=== PATIENT | male | born 1960 | race Caucasian/White ===

== ENCOUNTER 2025-08-23 13:57 | Emergency (ER) | payer OTHER, SELFPAY ==
[2025-08-23] VITALS (28 sets, daily range): BP systolic 178–209; BP diastolic 89–130; PULSE 68–95; O2SAT 95–99; BMI 30.5
--- NOTE | 2025-08-23 14:07 | ECG_ITS ---
The [facility] Test Date: 2025-08-23 Pat Name: Pastor Godinez Department: Room: - Gender: Male Floater Operator: : 1960 Requested By: Jaizel Rebollar Order Number: [id number] Reading MD: JOHN BRIONES M.D. Measurements Intervals [place] Rate: 79 P: 47 MT: 244 QRS: 65 QRSD: 108 T: 65 QT: 412 QTc: 446 Interpretive Statements 1100 Sinus rhythm 2231 First degree AV block 2440 Incomplete right bundle branch block 4068 Nonspecific Twave abnormality 9150 abnormal ECG No previous ECG available for comparison Electronically Signed On 08-23-2025 18:59:19 EDT by JOHN BRIONES M.D.
--- NOTE | 2025-08-23 14:07 | CT_ITS ---
The [address] [address] Patient Name: MARCI MUNOZ MRN: [id number] date: 1960 Sex: M Assigned Patient Location: ER Current Patient Location: ED.MAIN Accession/Order Number: [id number] Exam Date: 08/23/2025 14:15 Report Date: 08/23/2025 14:52 At the request of: CARLOS GIL MD Procedure: CT stroke head/brain wo con CT BRAIN WITHOUT CONTRAST: CLINICAL HISTORY: dizziness of with headache COMPARISON: None TECHNIQUE: Contiguous axial unenhanced images were obtained through the brain. This CT exam was performed using one or more following dose reduction techniques: Automated exposure control, adjustment of the mA and/or kV according to patient size, or use of iterative reconstruction technique. FINDINGS: There is no evidence of midline shift, intra or extra-axial fluid collection, hemorrhage or CT evidence of stroke. Cortical atrophy with chronic microvascular ischemic changes. Posterior fossa appears unremarkable. Visualized intraorbital contents demonstrate no acute findings. Visualized paranasal sinuses are clear. The surrounding soft tissues are normal. CT/CT stroke head/brain wo con IMPRESSION: NO ACUTE INTRACRANIAL ABNORMALITY. Impression dictated by: Azeem Moya Jr., D.OHenry 08/23/2025 2:52 PM Dictation Location: [place] [address] Electronically authenticated by: [id number] Y Date: 08/23/2025 14:52
--- NOTE | 2025-08-23 14:19 | ED.DIZZY1 ---
HPI - Dizziness General Chief Complaint: Dizziness Stated Complaint: CVA SYMPTOMS Time Seen by Provider: 08/23/25 14:07 Source: patient Mode of arrival: Wheelchair Limitations: no limitations History of Present Illness HPI Narrative: The patient is a 65-year-old male presenting to the ER after he was driving and felt all of a sudden dizzy and having some nausea, the patient did not have any weakness but he just felt Dizzy with no room spinning sensation,, he was worried that he is going to have a stroke and that why he presented to the ER Upon arrival the patient initially mentioned that he is worried that he is having a stroke but he did not have any upper or lower extremity weakness no blurry vision no double vision no difficulty speaking at any time The patient does have a history of hypertension but for the last 2 years he has not been taking any blood pressure medication because he thinks he was allergic to a lot of medication that he was given Related Data Previous Rx's ?Medication ?Instructions ?Recorded hydralazine 25 mg tablet 25 mg PO TID #20 tabs 08/23/25 Allergies Allergy/AdvReac Type Severity Reaction Status Date / Time No Known Drug Allergies Allergy Verified 08/23/25 14:02 Review of Systems ROS Status of ROS 10 or more systems reviewed and unremarkable except as noted in history and below PFSH PFSH Social History Little interest or pleasure in doing things: not at all Feeling down, depressed, or hopeless: not at all Exam Narrative Exam Narrative: Nurses notes and vital signs reviewed and patient is not hypoxic. General: Well-appearing and in no apparent distress. Skin: Warm, dry, no pallor noted. No rash. Head: Normocephalic, atraumatic. Neck: Supple, non-tender. Eye: Pupils are equal, round and EOMI. No scleral icterus. Ears, Nose, Mouth, and Throat: TM are clear, no nasal mucosal hypertrophy. Oral mucosa is moist, no posterior oropharynx erythema, uvula is mid-line Cardiovascular: Regular Rate and Rhythm without murmur, gallop or rub. Respiratory: No accessory muscle use or respiratory distress. Lungs are clear to auscultation, no wheezing, rales or rhonchi Chest Wall: no tenderness Back: No midline thoracic or lumbar vertebral tenderness. No CVA tenderness Musculoskeletal: normal ROM, no calf or popliteal tenderness, no lower extremity edema/swelling GI: Abdomen is soft, non-distended. Normal bowel sounds. No masses appreciated. No tenderness to palpation. No rebound, guarding, or rigidity noted. Neurological: A&O x4. No cranial nerve dysfunction observed. No truncal ataxia. Moves all extremities. Sensation intact. Psychiatric: Cooperative and interactive. Normal mood and affect. Constitutional Vital Signs, click to edit/add: Last Vital Signs Pulse 95 H 08/23/25 16:45 Resp 18 08/23/25 16:45 BP 178/98 H 08/23/25 16:45 Pulse Ox 96 08/23/25 16:45 O2 Del Method Room Air 08/23/25 13:58 Course Vital Signs Vital signs: Vital Signs Pulse Rate 82 08/23/25 13:58 Respiratory Rate 22 H 08/23/25 13:58 Blood Pressure 209/114 H 08/23/25 13:58 Pulse Oximetry 99 08/23/25 13:58 Oxygen Delivery Method Room Air 08/23/25 13:58 Pulse Rate 95 H 08/23/25 16:45 Respiratory Rate 18 08/23/25 16:45 Blood Pressure 178/98 H 08/23/25 16:45 Pulse Oximetry 96 08/23/25 16:45 Oxygen Delivery Method Room Air 08/23/25 13:58 MDM - Dizziness MDM Narrative Medical decision making narrative: The patient EKG showing sinus rhythm with a heart rate of [address] elevation or depression Patient neurological examination was completely benign upon arrival CBC and chemistry showed no acute pathology and the patient troponin was not elevated and that compared to 2 testing The patient was feeling much better after his blood pressure was getting control I did initially give him hydralazine 5 mg and then he was provided with hydralazine 10 after which his blood pressure is 178/98 which is adequate at the moment I did speak with Dr. Rebollar who is the primary care with the patient and the plan was to discharge the patient on hydralazine and to follow-up with him within the next few days and he was discharged with hydralazine 25 mg 3 times daily Patient instructed about monitoring his symptoms and measuring his blood pressure daily and decreasing salt intake The patient was able to ambulate with no difficulty he did not have any concern when he was in the ER The patient to follow-up with the primary care within 2 to 3 days and to come back to the ER in case of any worsening of the current symptoms or any new symptoms or concerns Lab Data Labs: Lab Results 08/23/25 08/23/25 Range/Units 14:05 16:31 WBC 6.2 (4.0-11.0) 10^3/uL RBC 4.43 L (4.70-6.10) 10^6/uL Hgb 14.5 (14.0-18.0) g/dL Hct 41.2 L (42.0-54.0) % MCV 93.0 (80.0-94.0) fL MCH 32.7 (25.9-34.0) pg MCHC 35.2 (29.9-35.2) g/dL RDW 12.0 (11.0-15.0) % Plt Count 179 (150-450) 10^3/uL MPV 9.3 L (9.5-13.5) fL Neut % (Auto) 65.9 (43.0-75.0) % Lymph % (Auto) 15.4 L (20.5-60.0) % [place] % (Auto) 14.5 H (1.7-12.0) % Eos % (Auto) 2.9 (0.9-7.0) % Baso % (Auto) 1.1 (0.2-2.0) % Neut # (Auto) 4.1 (1.4-6.5) 10^3/uL Lymph # (Auto) 1.0 L (1.2-3.8) 10^3/uL [place] # (Auto) 0.9 H (0.3-0.8) 10^3/uL Eos # (Auto) 0.2 (0.0-0.7) 10^3/uL Baso # (Auto) 0.1 (0.0-0.1) 10^3/uL Abs Immat Gran (auto) 0.01 (0.00-0.03) 10^3/uL Imm/Tot Granulo (auto) 0.2 (0.0-0.5) % PT 11.2 (9.0-11.6) sec INR 1.06 Sodium 137 (136-145) mmol/L Potassium 3.1 L (3.5-5.1) mmol/L Chloride 98 (98-107) mmol/L Carbon Dioxide 23.3 (21.0-32.0) mmol/L Anion Gap 18.8 BUN 7.0 (7.0-18.0) mg/dL Creatinine 0.78 (0.70-1.30) mg/dL Est GFR ( Amer) >60 (>=60 mL/min/1.73m^2) Est GFR (Non-Af Amer) >60 (>=60 mL/min/1.73m^2) BUN/Creatinine Ratio 9.0 Glucose 94 (74-106) mg/dL Calcium 9.1 (8.5-10.1) mg/dL Total Bilirubin 0.6 (0.2-1.0) mg/dL AST 56 H (15-37) U/L ALT 72 H (16-63) U/L Alkaline Phosphatase 65 (46-116) U/L Troponin I High Sens 7.1 9.2 (4.0-76.1) pg/mL Total Protein 8.5 H (6.4-8.2) g/dL Albumin 4.1 (3.4-5.0) g/dL Globulin 4.4 g/dL Albumin/Globulin Ratio 0.9 Discharge Plan Discharge Chief Complaint: Dizziness Clinical Impression: Uncontrolled hypertension Patient Disposition: Home, Self-Care Time of Disposition Decision: 17:38 Condition: Good Prescriptions / Home Meds: New hydralazine 25 mg tablet 25 mg PO TID Qty: 20 0RF Print Language: Swedish Instructions: Hypertension (ED) Referrals: Jaziel Rebollar DO [Primary Care Provider, Internal Medicine] - 1 week
[2025-08-23 14:20] LABS: Hematocrit 41.2 % (42.0-54.0); Hemoglobin 14.5 g/dL (14.0-18.0); Immature Granulocytes Abs Auto 0.01 10^3/uL (0.00-0.03); Immature Granulocytes Pct Auto 0.2 % (0.0-0.5); Lymphocytes Absolute Auto 1.0 10^3/uL (1.2-3.8); Mean Corpuscular HGB Conc 35.2 g/dL (29.9-35.2); Mean Corpuscular Hemoglobin 32.7 pg (25.9-34.0); Mean Corpuscular Volume 93.0 fL (80.0-94.0); Platelet Count 179 10^3/uL (150-450); Red Blood Count 4.43 10^6/uL (4.70-6.10); White Blood Count 6.2 10^3/uL (4.0-11.0)
--- OUTSIDE RECORDS SUMMARY | 2025-08-23 14:31 | XMS_ITS | Clinical Summary ---
Author Organization [facility] Address [address] [place] [address] Care Team Providers Care Page Designer Name Role Phone Unavailable Primary Care Provider Unavailabl e Social History Tobacco UseTypesPacks/DayYears UsedDateSmoking Tobacco: Never AssessedSex and Gender InformationValueDate RecordedSex Assigned at BirthNot on fileLegal Sex Male01/08/2023 10:01 PM EDTGender IdentityNot on fileSexual OrientationNot on file Last Filed Vital Signs Vital SignReadingTime TakenCommentsBlood Ctrtxqby484/8812 12:00 PM EST Pulse--Temperature--Respiratory Rate--Oxygen Saturation--Inhaled Oxygen Concentration--Ixhodt59.8 kg (215 lb 9.6 oz)11/24/2019 12:00 PM PKTLykkxv335.4 cm (6' 1 )11/24/2019 12:00 PM ESTBody Mass Index28.44011/24/2019 12:00 PM EST Plan of Treatment Not on file
[2025-08-23 14:36] LABS: INR 1.06; Prothrombin Time 11.2 sec (9.0-11.6)
[2025-08-23] MEDS: HYDRALAZINE HCL 20 MG/ML VIAL 5 MG IVP (14:36)
[2025-08-23 15:30] LABS: Alanine Aminotransferase 72 U/L (16-63); Albumin Globulin Ratio 0.9; Albumin Level 4.1 g/dL (3.4-5.0); Alkaline Phosphatase 65 U/L (46-116); Anion Gap 18.8; Aspartate Amino Transferase 56 U/L (15-37); Blood Urea Nitrogen 7.0 mg/dL (7.0-18.0); Calcium 9.1 mg/dL (8.5-10.1); Carbon Dioxide 23.3 mmol/L (21.0-32.0); Chloride 98 mmol/L (98-107); Estimated GFR (African America >60 (>=60 mL/min/1.73m^2); Estimated GFR (Non-African Ame >60 (>=60 mL/min/1.73m^2); Globulin 4.4 g/dL; Glucose 94 mg/dL (74-106); Potassium 3.1 mmol/L (3.5-5.1); Sodium 137 mmol/L (136-145); Total Protein 8.5 g/dL (6.4-8.2)
[2025-08-23] MEDS: HYDRALAZINE HCL 20 MG/ML VIAL 10 MG IVP (16:14)
== END 2025-08-23 18:04 | disposition home or self-care (01) ==
PROVIDERS: Emergency Provider Emergency Medicine; Family Provider Internal Medicine; PCP Internal Medicine
DX: I10 Essential (primary) hypertension (principal); T50.906A Underdosing of unspecified drugs, medicaments and biological substances, initial encounter; Z91.128 Patient's intentional underdosing of medication regimen for other reason; R42 Dizziness and giddiness
CPT/HCPCS: 36415; 70450; 80053; 84484; 85025; 85610; 93005; 96374; 96375; 96376; 99285; J0360; J2405

== ENCOUNTER 2025-09-07 09:24 | Outpatient (OUT) | payer OTHER, SELFPAY ==
--- OUTSIDE RECORDS SUMMARY | 2025-08-26 05:38 | XMS_ITS | Continuity of Care Document ---
Author Organization [facility] Address [address] [place] [address] Phone Care Team Providers Care Cyanide Pot Hardener Name Role Phone Conversion, Provider Primary Care Provider Unava Zaria Keen MD Attending Provider [phone] Jaziel Rebollar DO Primary Care Provider [phone] Jaziel Rebollar DO Attending Provider Care Teams Patient Care Team Team Status: Active Member Role/Relationship Status Dates Jaziel Rebollar DO Primary Care Provider Active Patient Care Team Team Status: Active Member Role/Relationship Status Dates Provider Conversion Primary Care Provider Active Start: August 23, 2025 Zaria Rivas MDAttjanis ProviderActiveStart: August 23, 2025 Patient Care Team Team Status: Inactive Member Role/Relationship Status Dates Jaziel Rebollar DO Primary Care Provider Active Start: August 26, 2025 End: August 26torres Rebollar DOAttjanis ProviderActiveStart: August 26, 2025 End: August 26, 2025 Chief Complaint and Reason for Visit Chief Complaint Admit Date ER F/U [facility] August 26, 2025 9 :44am Allergies, Adverse Reactions, Alerts Allergen Type Severity Reaction Last Updated Verified Status carvedilol Allergy Unknown Rash August 26, 2025 10:10am Erik locke Active lisinopril Allergy Unknown Rash August 26, 2025 10:10am Erik locke Active Social History Smoking Status Status Start Date End Date Date of Observa tion Ex-smoker (finding) August 26, 2025 10:11am Observation Status Observation Response Date of Response Legal Sex [facility] (finding) [facility] Medications Medication Status Dose Units Route Directions Qty Days Refills S tart Date Stop Date End Date Reason(s) Instructions Adherence Hydralazine 25 mg tablet Active 25 MG PO Three t imes daily August 26, 2025 12:00amComplies with drug therapyHydralazine 25 mg tablet Ehksyd76EZWASooai times dnque14715Bpqprpj 31st, 2025 12:00amComplies with drug therapy Relevant Diagnostic Tests and/or Laboratory Data Laboratory Results Test Collection Date/Time Result Date/Time Result Interpretation Reference Range Result Comment Performing Site Anion Gap August 23, 2025 2:05pm August 23, 2025 2: 05pm 18.8 Prothromb Time International RatioAugust 23, 2025 2:05pmAugust 23, 2025 2:05pm1.06DESIRED INR:2.0-3.0 CONDITIONS NOT LISTED BELOW2.5-3.5 FOR PROSTHETIC HEART VALVE REPLACEMENT2.5-3.5 RECURRENT THROMBOSISBasophils # (Auto)August 23, 2025 2:05pmAugust 23, 2025 2:05pm0.1 10 3/uL0.0-0.1Troponin I High SensitivityAugust 23, 2025 4:31pmOct2024 4:31pm9.2 pg/mL4.0-76.1 CUT-OFF POINTS HAVE BEEN ESTABLISHED BASED ON THE FOURTHUNIVERSAL DEFINITION OF MYOCARDIAL INFARCTION. THE UPPERREFERENCE LIMIT (URL) OF TROPONIN, DEFINED THE 99THPERCENTILE OF cTnI DISTRIBUTION IN A REFERENCE POPULATION,HAS BEEN CONFIRMED THE DECISION THRESHOLD FOR MIDIAGNOSIS.99TH PERCENTILE = 76.2 PG/MLNOTE: HIGH-SENSITIVITY TROPONIN ASSAY IS NOT INTENDED TO BEUSED IN ISOLATION BUT SHOULD BE INTERPRETED IN CONJUNCTIONWITH OTHER DIAGNOSTIC AND CLINICAL INFORMATION.Albumin/Globulin RatioAugust 23, 2025 2:05pmAugust 23, 2025 2:05pm0.9Prothrombin TimeAugust 23, 2025 2:05pmOct2024 2:05pm11.2 sec9.0-11.6Basophils (%) (Auto)August 23, 2025 2:05pmOct2024 2:05pm1.1 %0.2-2.0AlbuminAugust 23, 2025 2:05pmOct2024 2:05pm 4.1 g/dL3.4-5.0Eosinophils # (Auto)August 23, 2025 2:05pmOct2024 2:05pm0.2 10 3/uL0.0-0.7Alkaline PhosphataseOct2024 2:05pmOct2024 2:05pm65 U/P81-774Iuzfqrskhzr (%) (Auto)August 23, 2025 2:05pm August 23, 2025 2:05pm2.9 %0.9-7.0Alanine Aminotransferase (ALT/SGPT)August 23, 2025 2:05pmOct2024 2:05pm72 U/LAbove high vhevgu02-38Gsydhiikvt August 23, 2025 2:05pmOct2024 2:05pm41.2 %Below low normal 42.0-54.0Aspartate Amino Transf (AST/SGOT)August 23, 2025 2:05pmOct2024 2:05pm56 U/LAbove high cptotg48-77SkbtojmxczZwaptlf 28th, 2025 2:05pm August 23, 2025 2:05pm14.5 g/dL14.0-18.0BUN/Creatinine RatioAugust 23, 2025 2:05pmOct2024 2:05pm9.0Immature Granulocyte # (Auto)August 23, 2025 2:05pmOct2024 2:05pm0.01 10 3/uL0.00-0.03Blood Urea NitrogenAugust 23, 2025 2:05pmOct2024 2:05pm7.0 mg/dL7.0-18.0 Immature Granulocyte % (Auto)August 23, 2025 2:05pmOct2024 2:05pm 0.2 %0.0-0.5Calcium LevelAugust 23, 2025 2:05pmOct2024 2:05pm9.1 mg/dL8.5-10.1Lymphocytes # (Auto)August 23, 2025 2:05pmOct2024 2:05pm1.0 10 3/uLBelow low normal1.2-3.8Chloride LevelOct2024 2:05pm August 23, 2025 2:05pm98 mmol/B49-997Vpxizzkvcmp (%) (Auto)August 23, 2025 2:05pmOct2024 2:05pm15.4 %Below low cjtogb69.5-60.0Carbon Dioxide LevelOct2024 2:05pmOct2024 2:05pm23.3 mmol/L21.0-32.0Mean Corpuscular HemoglobinOct2024 2:05pmOct2024 2:05pm32.7 pg 25.9-34.0CreatinineOct2024 2:05pmOct2024 2:05pm0.78 mg/dL 0.70-1.30Mean Corpuscular Hemoglobin ConcentOct2024 2:05pmOct2024 2:05pm35.2 g/dL29.9-35.2Estimated GFR ()August 23, 2025 2:05pmOct2024 2:05pm>60>=60 mL/min/1.73m 2Mean Corpuscular VolumeOct2024 2:05pmOct2024 2:05pm93.0 fL80.0-94.0 Estimated GFR (Non- AmericanOct2024 2:05pmOct2024 2:05pm>60>=60 mL/min/1.73m 2Monocytes # (Auto)August 23, 2025 2:05pmOct2024 2:05pm0.9 10 3/uLAbove high normal0.3-0.8GlobulinOct2024 2:05pmOct2024 2:05pm4.4 g/dLMonocytes (%) (Auto)August 23, 2025 2:05pmOct2024 2:05pm14.5 %Above high normal1.7-12.0Glucose Level August 23, 2025 2:05pmOct2024 2:05pm94 mg/kA37-747Zixw Platelet VolumeOct2024 2:05pmAugust 23, 2025 2:05pm9.3 fLBelow low normal 9.5-13.5Potassium LevelOct2024 2:05pmAugust 23, 2025 2:05pm3.1 mmol/LBelow low normal3.5-5.1Neutrophils # (Auto)August 23, 2025 2:05pm August 23, 2025 2:05pm4.1 10 3/uL1.4-6.5Sodium LevelAugust 23, 2025 2:05pm August 23, 2025 2:34tu122 mmol/R021-463Uisrirkxodv (%) (Auto)August 23, 2025 2:05pmAugust 23, 2025 2:05pm65.9 %43.0-75.0Total BilirubinOct2024 2:05pmOct2024 2:05pm0.6 mg/dL0.2-1.0Platelet CountOct2024 2:05pmAugust 23, 2025 2:12jx391 10 3/cZ214-667Fkbzq ProteinOct2024 2:05pmOct2024 2:05pm8.5 g/dLAbove high normal6.4-8.2Red Blood CountOct2024 2:05pmAugust 23, 2025 2:05pm4.43 10 6/uLBelow low normal4.70-6.10Red Cell Distribution WidthOct2024 2:05pmAugust 23, 2025 2:05pm12.0 %11.0-15.0Corrected White Blood CountOct2024 2:05pm August 23, 2025 2:05pm6.2 10 3/uL4.0-11.0 Vital Signs Vital Reading Result Reference Range Collection Date/Time Height 73 [in_i] August 26, 2025 10:97zdYxptno276.32 kgOct5 9:46amBody Bzumkblumnb17.2 [degF]97.6-99.0[facility] 2024 9:46amHeart Rate69 /xec34-031 August 26, 2025 9:46amRespiratory rate16 /gkf38-68Imxbrzk 2024 9:46am Oxygen saturation by Pulse sdaewodf57 %95-100Octcr[facility] 2024 9:46amBP Vpekofbq904 mm[Hg]100-140Octcr[facility] 2024 9:46amBP Oqdcvtloc70 mm[Hg]60-100 August 26, 2025 9:46amBMI (Body Mass Index)30.3 kg/w9Pbgvoev 2024 9:46am Advance Directives Advance Directive Response Recorded Date/ Time Advance Directives No August 26, 2025 9:40am Insurance Providers Guarantor Pastor Godinez Address [address] [place], [place] [address]Contact Info.Home Phone: Coverage Status Update:2025 Payer Group Member ID Coverage Type Subscriber Relationship to Subscriber Effective Date Expiration Date [employer] [id number] A Lepley Id: [id number] [id number] Home Phone: Self Encounters Encounter Location(s) Arrival/Admit Date Discharge/Departure Date Discharge/Departure Disposition Provider(s) Non-patient / Non-visit -[facility] O ctober 2024 2:05pm Zaria Rivas , MDDeparted Physician/Provider [facility] 20[facility] 9:44amOctober 2024 10:37amDischarged to home care or self care (routine discharge)Jaziel Rebollar , DO
--- OUTSIDE RECORDS SUMMARY | 2025-09-07 09:27 | XMS_ITS | Clinical Summary ---
Author Organization [facility] Address [address] [place] [address] Care Team Providers Care Snuff Grinder Name Role Phone Unavailable Primary Care Provider Unavailabl e Social History Tobacco UseTypesPacks/DayYears UsedDateSmoking Tobacco: Never AssessedSex and Gender InformationValueDate RecordedSex Assigned at BirthNot on fileLegal Sex Male01/08/2023 10:01 PM EDTGender IdentityNot on fileSexual OrientationNot on file Last Filed Vital Signs Vital SignReadingTime TakenCommentsBlood Omgvpift649/8812 12:00 PM EST Pulse--Temperature--Respiratory Rate--Oxygen Saturation--Inhaled Oxygen Concentration--Snwrds33.8 kg (215 lb 9.6 oz)11/24/2019 12:00 PM IFVNlaehd444.4 cm (6' 1 )11/24/2019 12:00 PM ESTBody Mass Index28.44011/24/2019 12:00 PM EST Plan of Treatment Not on file
[2025-09-08 12:32] LABS: Microalbum Creatinine Ratio Ur 362.9 mg/g (0.0-29.9)
== END 2025-09-07 09:25 | disposition home or self-care (01) ==
LOC: US 09:24
PROVIDERS: Family Provider Internal Medicine; PCP Internal Medicine; Visit Provider Internal Medicine
DX: E87.6 Hypokalemia (principal); I10 Essential (primary) hypertension
CPT/HCPCS: 36415; 76775; 82043; 82088; 82570; 84244; 93975